=== PATIENT | female | born 1940 | race Caucasian/White ===

== ENCOUNTER 2017-05-21 16:17 | Observation (INO) | payer OTHER ==
[~2017-05-21] VITALS: Ht 157.5 cm; Wt 107.0 kg
[~2017-05-21 16:17] MED LIST: SENN-61 PO
[2017-05-21] MEDS ORDERED: SODIUM CHLORIDE 0.9% 1000ML 500 ML IV STA (16:36)
[2017-05-21] MEDS ORDERED: OMEG10007 PO (17:08)
[2017-05-21] MEDS ORDERED: ASPI81TA28 PO (17:08)
[2017-05-21] MEDS ORDERED: PANTOprazole INJ 40 MG in DEXTROSE 5% 100ML IV SCH (17:15)
[2017-05-21] MEDS ORDERED: PANTOprazole INJ 80 MG in DEXTROSE 5% 100ML IV SCH (17:15)
[2017-05-21 17:17] LABS: BASO % 0.7 %; BASO ABS # 0.06 K/uL (0-0.2); COMPLETE YES; EOS % 4.2 %; IG% 0.1 %; LYMPH % 24.7 %; MEAN CELL VOLUME 91.3 fL (80-100); MEAN CORPUSCULAR HEMOGLOBIN 30.1 pg (25-34); MEAN PLATELET VOLUME 10.4 fL (7.4-10.4); NEUT % 62.3 %; PLATELET COUNT 231 K/uL (130-400); RED BLOOD COUNT 4.38 M/uL (4.2-5.4)
[2017-05-21 17:22] LABS: PROTHROMBIN TIME (PATIENT) 10.2 SECONDS (9.0-12.0)
[2017-05-21 17:36] LABS: BUN/CREATININE RATIO 18.2 (10-20); CALCIUM 9.2 mg/dl (8.5-10.1); CREATININE 1.21 mg/dl (0.60-1.20); POTASSIUM 3.7 mmol/L (3.5-5.1)
--- NOTE | 2017-05-21 18:34 | EMERGENCY ROOM VISIT NOTE ---
History Report prepared by Sarah: Contreras Thornton Under the Supervision of: Dr. Diogo Bishop M.D. First contact with patient: 16:31 Chief Complaint: RECTAL BLEEDING Stated Complaint: RECTAL BLEEDING S/P COLONOSCOPY- GI REFERRED History of Present Illness The patient is a 77 year old female who presents to the Emergency Room with complaints of intermittent rectal bleeding beginning three days ago. She had a colonoscopy two weeks ago which showed two polyps. She states that the polyps were removed surgically at this time, casey were required. The patient states that her bloody bowel movements were "bright red" three days ago. She had no bowel movement two days ago. Her bowel movements yesterday and today were "black ". The patient currently complains of lightheadedness, and rectal "cramping". She notes that she recently found out she has stage 3 kidney disease. She had an EGD recently as well for GERD and is currently on Pantoprazole. She is on baby aspirin, but does not take any other blood thinning medication. Source of History: patient Onset: Three days ago Position: other (rectum) Quality: other (bleeding) Timing: intermittent Note: The patient currently complains of lightheadedness, and rectal "cramping". Review of Systems See HPI for pertinent positives & negatives. A total of 10 systems reviewed and were otherwise negative. Past Medical & Surgical Medical Problems: (1) GERD (gastroesophageal reflux disease) Surgical Problems: (1) Hx of cholecystectomy Family History No pertinent family history stated. Social History Smoking Status: Never Smoker Marital Status: Housing Status: lives with significant other Occupation Status: employed Current/Historical Medications Scheduled Aspirin (Aspirin Ec), 81 MG PO DAILY Bupropion Hcl (Wellbutrin Sr), 150 MG PO DAILY Citalopram Hydrobromide (Citalopram Hydrobromide), 20 MG PO DAILY Fish Oil ([place]-3), 1 CAP PO DAILY Levothyroxine Sodium (Levothyroxine Sodium), 100 MCG PO DAILY Pantoprazole (Protonix), 40 MG PO DAILY Allergies Coded Allergies: Hydroxyzine (Verified Allergy, Unknown, HIVES, 11/15/15) Physical Exam Vital Signs Date Time Temp Pulse Resp B/P (MAP) Pulse Ox O2 Delivery O2 Flow Rate FiO2 05/21/17 18:59 68 20 157/78 97 Room Air 11/15/17 18:00 162/75 05/21/17 17:47 70 21 93 05/21/17 17:32 65 18 96 05/21/17 17:30 160/78 05/21/17 17:17 67 15 97 05/21/17 17:13 66 05/21/17 17:11 150/82 05/21/17 16:20 36.7 99 18 132/83 99 Room Air Physical Exam GENERAL: Patient is in no acute distress. HEENT: No acute trauma, normocephalic atraumatic, mucous membranes moist, no nasal congestion, no scleral icterus. NECK: No stridor, no adenopathy, no meningismus, trachea is midline. LUNGS: Clear to auscultation bilaterally, no wheeze, no rhonchi, breath sounds equal. HEART: Without murmurs gallops or rubs, regular rate and rhythm. ABDOMEN: Soft, bowel sounds positive, no hernias, no peritonitis. Mildly tender along the left side of abdomen. RECTAL: Black, heme-positive stool. EXTREMITIES: No cyanosis or edema, full range of motion of all the joints without pain or difficulty, no signs for acute trauma. NEUROLOGIC: Oriented x 3, no acute motor or sensory deficits, no focal weakness. SKIN: No rash, no jaundice, no diaphoresis. Medical Decision & Procedures ER Provider Diagnostic Interpretation: X-ray results as stated below per interpretation by me and the radiologist: CHEST ONE VIEW PORTABLE FINDINGS: Cardiac silhouette is mildly enlarged. There is atherosclerosis of the aorta. There is no pneumothorax, pleural effusion, focal airspace consolidation or overt pulmonary edema. Bones of the chest are grossly intact. Mild interstitial coarsening suggests chronic changes. Linear subsegmental right basilar opacities suggest atelectasis or scarring. Bones of the chest are grossly intact with degenerative changes of the shoulders and spine. Calcifications of the right neck suggest atherosclerotic plaquing of the right carotid bulb. IMPRESSION: No acute cardiopulmonary process. The above report was generated using voice recognition software. It may contain grammatical, syntax or spelling errors. Electronically signed by: Hany Porter M.D. 05/21/2017 6:40 PM Laboratory Results 05/21/17 16:53 Red Blood Count 4.38, Mean Corpuscular Volume 91.3, Mean Corpuscular Hemoglobin 30.1, Mean Corpuscular Hemoglobin Concent 33.0, Mean Platelet Volume 10.4, Neutrophils (%) (Auto) 62.3, Lymphocytes (%) (Auto) 24.7, Monocytes (%) (Auto) 8.0, Eosinophils (%) (Auto) 4.2, Basophils (%) (Auto) 0.7, Neutrophils # (Auto) 5.04, Lymphocytes # (Auto) 2.00, Monocytes # (Auto) 0.65, Eosinophils # (Auto) 0.34, Basophils # (Auto) 0.06 05/21/17 16:53 Test 05/21/17 16:53 White Blood Count 8.10 K/uL (4.8-10.8) Red Blood Count 4.38 M/uL (4.2-5.4) Hemoglobin 13.2 g/dL (12.0-16.0) Hematocrit 40.0 % (37-47) Mean Corpuscular Volume 91.3 fL (80-100) Mean Corpuscular Hemoglobin 30.1 pg (25-34) Mean Corpuscular Hemoglobin Concent 33.0 g/dl (32-36) Platelet Count 231 K/uL (130-400) Mean Platelet Volume 10.4 fL (7.4-10.4) Neutrophils (%) (Auto) 62.3 % Lymphocytes (%) (Auto) 24.7 % Monocytes (%) (Auto) 8.0 % Eosinophils (%) (Auto) 4.2 % Basophils (%) (Auto) 0.7 % Neutrophils # (Auto) 5.04 K/uL (1.4-6.5) Lymphocytes # (Auto) 2.00 K/uL (1.2-3.4) Monocytes # (Auto) 0.65 K/uL (0.11-0.59) Eosinophils # (Auto) 0.34 K/uL (0-0.5) Basophils # (Auto) 0.06 K/uL (0-0.2) RDW Standard Deviation 46.1 fL (36.4-46.3) RDW Coefficient of Variation 13.9 % (11.5-14.5) Immature Granulocyte % (Auto) 0.1 % Immature Granulocyte # (Auto) 0.01 K/uL (0.00-0.02) Prothrombin Time 10.2 SECONDS (9.0-12.0) Prothromb Time International Ratio 1.0 (0.9-1.1) Activated Partial Thromboplast Time 24.9 SECONDS (21.0-31.0) Partial Thromboplastin Ratio 1.0 Anion Gap 9.0 mmol/L (3-11) Est Creatinine Clear Calc Drug Dose 46.2 ml/min Estimated GFR () 50.7 Estimated GFR (Non- 43.7 BUN/Creatinine Ratio 18.2 (10-20) Calcium Level 9.2 mg/dl (8.5-10.1) Total Bilirubin 0.4 mg/dl (0.2-1) Aspartate Amino Transf (AST/SGOT) 12 U/L (15-37) Alanine Aminotransferase (ALT/SGPT) 19 U/L (12-78) Alkaline Phosphatase 91 U/L (45-117) Total Protein 7.6 gm/dl (6.4-8.2) Albumin 3.7 gm/dl (3.4-5.0) Globulin 3.9 gm/dl (2.5-4.0) Albumin/Globulin Ratio 1.0 (0.9-2) Lipase 177 U/L (73-393) Laboratory results reviewed by me. Medications Administered Medications (Trade) Dose Ordered Sig/Dustin Route Start Time Stop Time Status Last Admin Dose Admin Sodium Chloride 500 ml @ 999 mls/hr Q31M STAT IV 05/21/17 16:36 05/21/17 17:06 DC 05/21/17 16:36 999 MLS/HR Pantoprazole Sodium 80 mg/ Dextrose 120 ml @ 480 mls/hr TODAY@1715 IV 05/21/17 17:15 05/21/17 17:29 DC 05/21/17 17:38 480 MLS/HR Pantoprazole Sodium 40 mg/ Dextrose 100 ml @ 20 mls/hr Q5H IV 05/21/17 17:15 05/21/17 22:15 05/21/17 17:38 20 MLS/HR ECG Indication: other (GI bleeding) Rate (beats per minute): 69 Rhythm: normal sinus Findings: no acute ischemic change, no ectopy ED Course 1632: The patient was evaluated in room B4B. A complete history and physical exam was performed. 1636: Ordered Protonix IV Bolus/Drip IV, Sodium Chloride 500 ml @ 999 mls/hr IV. 1715: Ordered Pantoprazole Sodium 40 mg/Dextrose 100 mL @ 20 mL/hr IV. 1835: Upon reexamination the patient is resting comfortably. I discussed results and treatment plan with the patient. She verbalizes agreement and understanding. The patient will be evaluated for further management. Medical Decision The patient is a 77 year old female who presents to the ED with complaints of rectal bleeding. Differential diagnoses considered include upper GI bleeding, ulcer, anemia, lower GI bleeding, electrolyte imbalance, dehydration, and coagulopathy. There is no leukocytosis or concerning anemia. No significant electrolyte abnormality, kidney failure or hepatitis. There is no pancreatitis. There is no coagulopathy. Chest film shows no mediastinal widening, free air or pneumonia. EKG shows a sinus rhythm, no acute ischemia. The patient received IV saline, she was given an IV Protonix bolus and placed on a Protonix drip. She has been resting comfortably. The patient is likely suffering from an upper GI bleed given the color of the stool. I spoke with GI, a hospital stay was recommended. I did speak to the patient about my findings, I talked with case management. The on-call hospitalist was consulted. Medication Reconcilliation Current Medication List: was personally reviewed by me Blood Pressure Screening Patient's blood pressure: Elevated blood pressure Blood pressure disposition: Elevated BP felt to be situational Consults Time Called: 1642 Consulting Physician: Dr. Torin ARMENTA Returned Call: 1650 Discussed the patient's case. Dr. Harkins feels that the patient should stay for further evaluation. Additional Consults: Time Called: 1807 Consulted Physician: Dr. Rey Smith Returned Call: 1838 Additional Comments: Discussed the patient's case. The patient will be evaluated for further management. Impression Primary Impression: GI bleeding Additional Impression: Heme positive stool Scribe Attestation The scribe's documentation has been prepared under my direction and personally reviewed by me in its entirety. I confirm that the note above accurately reflects all work, treatment, procedures, and medical decision making performed by me. Departure Information Dispostion Being Evaluated By Hospitalist Referrals No Doctor, Assigned (PCP) Patient Instructions My [facility] Problem Qualifiers
--- NOTE | 2017-05-21 18:41 | DIAGNOSTIC IMAGING REPORT ---
CHEST ONE VIEW PORTABLE HISTORY: 77 years-old Female EVALUATE GI BLEED acute gastrointestinal hemorrhage COMPARISON: None available TECHNIQUE: Portable AP view of the chest FINDINGS: Cardiac silhouette is mildly enlarged. There is atherosclerosis of the aorta. There is no pneumothorax, pleural effusion, focal airspace consolidation or overt pulmonary edema. Bones of the chest are grossly intact. Mild interstitial coarsening suggests chronic changes. Linear subsegmental right basilar opacities suggest atelectasis or scarring. Bones of the chest are grossly intact with degenerative changes of the shoulders and spine. Calcifications of the right neck suggest atherosclerotic plaquing of the right carotid bulb. IMPRESSION: No acute cardiopulmonary process. The above report was generated using voice recognition software. It may contain grammatical, syntax or spelling errors. Electronically signed by: Hany Porter M.D. 05/21/2017 6:40 PM Dictated Date/Time: 05/21/2017 6:38 PM
--- NOTE | 2017-05-21 19:35 | History and Physical ---
History & Physical Date & Time of Service: May 21, 2017 at 19:20 Chief Complaint: Rectal Bleeding S/P Colonoscopy- Gi Referred Primary Care Physician: Magi Rodriguez D.O. History of Present Illness Source: patient Past Medical/Surgical History Medical Problems: (1) GERD (gastroesophageal reflux disease) Status: Chronic Surgical Problems: (1) Hx of cholecystectomy Status: Resolved Family History Breast cancer MOTHER This is a 77 year old F with recent upper endoscopy and colonoscopy on 05/09/17 with presentation to the ED after having blood in stool starting Friday then subsequently blood in stool black and tarry in appearance. Patient denies abdominal pain associated with the blood in rectum. Patient able to tolerate her usual diet without vomiting. Patient denies chest pain or shortness of breath. Patient takes aspirin daily at home. Other past medical history of Levothyroxine for hypothyroidism. History of gallbladder removed. The ER physician had discussed the case with Gastroenterology Dr. Harkins who asked patient to be given bowel prep and NPO after midnight for possible colonoscopy on Friday05/22/17 Social History Smoking Status: Never Smoker Marital Status: Occupational Status: employed Multi-Drug Resistant Organisms History of MDRO: No Allergies Coded Allergies: Hydroxyzine (Verified Allergy, Unknown, HIVES, 11/15/15) Home Medications Scheduled Aspirin (Aspirin Ec), 81 MG PO DAILY Bupropion Hcl (Wellbutrin Sr), 150 MG PO DAILY Citalopram Hydrobromide (Citalopram Hydrobromide), 20 MG PO DAILY Fish Oil ([place]-3), 1 CAP PO DAILY Levothyroxine Sodium (Levothyroxine Sodium), 100 MCG PO DAILY Pantoprazole (Protonix), 40 MG PO DAILY Review of Systems Constitutional: No fever Eyes: No worsening of vision, No eye pain ENT: No hearing loss, No unusual epistaxis, No nasal symptoms, No sore throat, No trouble swallowing Respiratory: No cough, No sputum, No wheezing, No shortness of breath, No dyspnea on exertion, No dyspnea at rest Cardiovascular: No chest pain, No edema, No palpitations Abdomen: + GI bleeding, No pain, No nausea, No vomiting, No diarrhea, No constipation Genitourinary - Female: No dysuria Neurologic: No numbness/tingling Psychiatric: No substance abuse Endocrine: No fatigue Hematologic / Lymphatic: + abnormal bleeding/bruising (blood per rectum) Integumentary: + rash, + itch Physical Exam Vital Signs Date Time Temp Pulse Resp B/P (MAP) Pulse Ox O2 Delivery O2 Flow Rate FiO2 05/21/17 18:59 68 20 157/78 97 Room Air 05/21/17 18:00 162/75 05/21/17 17:47 70 21 93 05/21/17 17:32 65 18 96 05/21/17 17:30 160/78 05/21/17 17:17 67 15 97 05/21/17 17:13 66 05/21/17 17:11 150/82 05/21/17 16:20 36.7 99 18 132/83 99 Room Air General Appearance: WD/WN, no apparent distress Head: normocephalic, atraumatic Eyes: normal inspection, EOMI, sclerae normal ENT: normal ENT inspection, hearing grossly normal, TMs normal, pharynx normal Neck: no JVD, trachea midline Respiratory/Chest: chest non-tender, lungs clear, normal breath sounds, no respiratory distress, no accessory muscle use Cardiovascular: regular rate, rhythm, no edema, no JVD Abdomen/GI: normal bowel sounds, non tender, soft Back: normal inspection, no CVA tenderness, no muscle spasm, normal range of motion Extremities/Musculoskelatal: normal inspection, no calf tenderness, normal capillary refill, no pedal edema, normal range of motion Neurologic/Psych: no motor/sensory deficits, alert, normal mood/affect, oriented x 3 Skin: normal color, warm/dry, no rash Diagnostics Laboratory Results Results Past 24 Hours Test 05/21/17 16:53 Range/Units White Blood Count 8.10 4.8-10.8 K/uL Red Blood Count 4.38 4.2-5.4 M/uL Hemoglobin 13.2 12.0-16.0 g/dL Hematocrit 40.0 37-47 % Mean Corpuscular Volume 91.3 80-100 fL Mean Corpuscular Hemoglobin 30.1 25-34 pg Mean Corpuscular Hemoglobin Concent 33.0 32-36 g/dl Platelet Count 231 130-400 K/uL Mean Platelet Volume 10.4 7.4-10.4 fL Neutrophils (%) (Auto) 62.3 % Lymphocytes (%) (Auto) 24.7 % Monocytes (%) (Auto) 8.0 % Eosinophils (%) (Auto) 4.2 % Basophils (%) (Auto) 0.7 % Neutrophils # (Auto) 5.04 1.4-6.5 K/uL Lymphocytes # (Auto) 2.00 1.2-3.4 K/uL Monocytes # (Auto) 0.65 0.11-0.59 K/uL Eosinophils # (Auto) 0.34 0-0.5 K/uL Basophils # (Auto) 0.06 0-0.2 K/uL RDW Standard Deviation 46.1 36.4-46.3 fL RDW Coefficient of Variation 13.9 11.5-14.5 % Immature Granulocyte % (Auto) 0.1 % Immature Granulocyte # (Auto) 0.01 0.00-0.02 K/uL Prothrombin Time 10.2 9.0-12.0 SECONDS Prothromb Time International Ratio 1.0 0.9-1.1 Activated Partial Thromboplast Time 24.9 21.0-31.0 SECONDS Partial Thromboplastin Ratio 1.0 Sodium Level 139 136-145 mmol/L Potassium Level 3.7 3.5-5.1 mmol/L Chloride Level 105 98-107 mmol/L Carbon Dioxide Level 26 21-32 mmol/L Anion Gap 9.0 3-11 mmol/L Blood Urea Nitrogen 22 7-18 mg/dl Creatinine 1.21 0.60-1.20 mg/dl Est Creatinine Clear Calc Drug Dose 46.2 ml/min Estimated GFR () 50.7 Estimated GFR (Non- 43.7 BUN/Creatinine Ratio 18.2 10-20 Random Glucose 81 70-99 mg/dl Calcium Level 9.2 8.5-10.1 mg/dl Total Bilirubin 0.4 0.2-1 mg/dl Aspartate Amino Transf (AST/SGOT) 12 15-37 U/L Alanine Aminotransferase (ALT/SGPT) 19 12-78 U/L Alkaline Phosphatase 91 45-117 U/L Total Protein 7.6 6.4-8.2 gm/dl Albumin 3.7 3.4-5.0 gm/dl Globulin 3.9 2.5-4.0 gm/dl Albumin/Globulin Ratio 1.0 0.9-2 Lipase 177 73-393 U/L Impression Assessment and Plan This is a 77 year old F with recent upper endoscopy and colonoscopy on 05/09/17 with presentation to the ED after having blood in stool starting Friday then subsequently blood in stool black and tarry in appearance. Patient denies abdominal pain associated with the blood in rectum. Patient able to tolerate her usual diet without vomiting. Patient denies chest pain or shortness of breath. GI bleed clear liquid diet for now The ER physician had discussed the case with Gastroenterology Dr. Harkins who asked patient to be given bowel prep and NPO after midnight for possible colonoscopy on Friday05/22/17 Bowel prep Golytely ordered Pantoprazole 40 mg BID IV ordered Cardiovascular health Hold home dose aspirin Hypothyroidism Hold Levothyroxine on AM 05/22/17 and resume after GI intervention Dysthymic disorder Hold home dosed Bupropion Hcl (Wellbutrin Sr) and Citalopram Hydrobromide until after Gi intervention CKD: trend creatinine, give IV fluids for now DVT ppx: SCD Monitor on telemetry Full Code Level of Care Telemetry Resuscitation Status FULL RESUSCITATION VTE Prophylaxis VTE Risk Assessment Done? Y/N: Yes Risk Level: Moderate Given or contraindicated: SCD's
[2017-05-21] MEDS ORDERED: SODIUM CHLORIDE 0.9% 1000ML 1,000 ML IV SCH (19:45)
[2017-05-21 20:05] VITALS: BP 153/85; TEMP 36.7; O2SAT 93; Ht 157.5 cm; Wt 107.0 kg
[2017-05-21] MEDS ORDERED: IV FLUIDS COMPLETED PRN (21:15)
[2017-05-21] MEDS: PANTOprazole INJ 40 MG in SYRINGE 0 ML IV SCH (21:51)
[2017-05-21] MEDS ORDERED: LAVAGE SOLUTION 4000ML PO SCH (22:40)
[2017-05-21] MEDS ORDERED: WLLSR/150 PO (23:38)
[2017-05-21] MEDS ORDERED: PANT40TA PO (23:40)
[2017-05-21] MEDS ORDERED: LEVO100T7 PO (23:40)
[2017-05-21] MEDS ORDERED: CITA20TA4 PO (23:40)
[2017-05-22] VITALS (9 sets, daily range): BP systolic 136–186; BP diastolic 57–74; PULSE 64–88; TEMP 36.2–36.8; O2SAT 96–100
[2017-05-22] MEDS ORDERED: METOPROLOL SUCC 25MG EXT REL TAB PO ONE (05:32)
[2017-05-22] MEDS ORDERED: POTASSIUM CHLORIDE 10 MEQ TABCR PO STA (05:32)
--- NOTE | 2017-05-22 05:33 | Progress Note ---
Internal Med Progress Note Date of Service: May 22, 2017. Provider Documentation: Made aware by RN of run of NSVT on the monitor. Patient asymptomatic. AP NSVT Possibly from electrolyte imbalance secondary to ongoing colonoscopy prep Check lytes Beta vandana to suppress ectopy. Baseline TTE RE NSVT Will relay to AM provider Vital Signs: Date Time Temp Pulse Resp B/P (MAP) Pulse Ox O2 Delivery O2 Flow Rate FiO2 05/22/17 05:01 36.7 71 19 158/68 (98) 98 Room Air 05/22/17 04:00 Room Air 05/22/17 00:10 36.8 66 18 136/65 (88) 96 Nasal Cannula 05/22/17 00:00 Room Air 05/21/17 20:05 36.7 20 153/85 93 Room Air 05/21/17 19:33 74 20 153/85 93 Room Air 05/21/17 18:59 68 20 157/78 97 Room Air 05/21/17 18:00 162/75 05/21/17 17:47 70 21 93 05/21/17 17:32 65 18 96 05/21/17 17:30 160/78 05/21/17 17:17 67 15 97 05/21/17 17:13 66 05/21/17 17:11 150/82 05/21/17 16:20 36.7 99 18 132/83 99 Room Air Lab Results: Results Past 24 Hours Test 05/21/17 16:53 05/22/17 05:46 Range/Units White Blood Count 8.10 6.42 4.8-10.8 K/uL Red Blood Count 4.38 4.12 4.2-5.4 M/uL Hemoglobin 13.2 12.3 12.0-16.0 g/dL Hematocrit 40.0 37.4 37-47 % Mean Corpuscular Volume 91.3 90.8 80-100 fL Mean Corpuscular Hemoglobin 30.1 29.9 25-34 pg Mean Corpuscular Hemoglobin Concent 33.0 32.9 32-36 g/dl Platelet Count 231 199 130-400 K/uL Mean Platelet Volume 10.4 10.2 7.4-10.4 fL Neutrophils (%) (Auto) 62.3 59.2 % Lymphocytes (%) (Auto) 24.7 25.9 % Monocytes (%) (Auto) 8.0 9.7 % Eosinophils (%) (Auto) 4.2 4.4 % Basophils (%) (Auto) 0.7 0.6 % Neutrophils # (Auto) 5.04 3.81 1.4-6.5 K/uL Lymphocytes # (Auto) 2.00 1.66 1.2-3.4 K/uL Monocytes # (Auto) 0.65 0.62 0.11-0.59 K/uL Eosinophils # (Auto) 0.34 0.28 0-0.5 K/uL Basophils # (Auto) 0.06 0.04 0-0.2 K/uL RDW Standard Deviation 46.1 45.9 36.4-46.3 fL RDW Coefficient of Variation 13.9 13.9 11.5-14.5 % Immature Granulocyte % (Auto) 0.1 0.2 % Immature Granulocyte # (Auto) 0.01 0.01 0.00-0.02 K/uL Prothrombin Time 10.2 9.0-12.0 SECONDS Prothromb Time International Ratio 1.0 0.9-1.1 Activated Partial Thromboplast Time 24.9 21.0-31.0 SECONDS Partial Thromboplastin Ratio 1.0 Sodium Level 139 136-145 mmol/L Potassium Level 3.7 3.5-5.1 mmol/L Chloride Level 105 98-107 mmol/L Carbon Dioxide Level 26 21-32 mmol/L Anion Gap 9.0 3-11 mmol/L Blood Urea Nitrogen 22 7-18 mg/dl Creatinine 1.21 0.60-1.20 mg/dl Est Creatinine Clear Calc Drug Dose 46.2 ml/min Estimated GFR () 50.7 Estimated GFR (Non- 43.7 BUN/Creatinine Ratio 18.2 10-20 Random Glucose 81 70-99 mg/dl Calcium Level 9.2 8.5-10.1 mg/dl Total Bilirubin 0.4 0.2-1 mg/dl Aspartate Amino Transf (AST/SGOT) 12 15-37 U/L Alanine Aminotransferase (ALT/SGPT) 19 12-78 U/L Alkaline Phosphatase 91 45-117 U/L Total Protein 7.6 6.4-8.2 gm/dl Albumin 3.7 3.4-5.0 gm/dl Globulin 3.9 2.5-4.0 gm/dl Albumin/Globulin Ratio 1.0 0.9-2 Lipase 177 73-393 U/L
[2017-05-22] MEDS: LEVOTHYROXINE 100 MCG TAB PO SCH (06:02)
[2017-05-22 06:03] LABS: BASO % 0.6 %; BASO ABS # 0.04 K/uL (0-0.2); COMPLETE YES; EOS % 4.4 %; HEMATOCRIT 37.4 % (37-47); IG% 0.2 %; LYMPH % 25.9 %; LYMPH ABS # 1.66 K/uL (1.2-3.4); MEAN CELL VOLUME 90.8 fL (80-100); MEAN CORPUSCULAR HEMOGLOBIN 29.9 pg (25-34); MEAN CORPUSCULAR HGB CONC 32.9 g/dl (32-36); MEAN PLATELET VOLUME 10.2 fL (7.4-10.4); MONO % 9.7 %; NEUT % 59.2 %; PLATELET COUNT 199 K/uL (130-400); RED BLOOD COUNT 4.12 M/uL (4.2-5.4); WHITE BLOOD COUNT 6.42 K/uL (4.8-10.8)
[2017-05-22 06:42] LABS: CALCIUM 8.2 mg/dl (8.5-10.1); CREATININE 1.1 mg/dl (0.60-1.20); MAGNESIUM 2.1 mg/dl (1.8-2.4); POTASSIUM 3.9 mmol/L (3.5-5.1)
[2017-05-22] MEDS ORDERED: LACTATED RINGER'S 1000ML 1,000 ML IV SCH (06:45)
[2017-05-22 06:54] LABS: THYROID STIMULATING HORMONE 3.51 uIu/ml (0.300-4.500)
--- NOTE | 2017-05-22 08:11 | Progress Note ---
Subjective Date of Service: May 22, 2017. Subjective Pt evaluation today including: conversation w/ patient, physical exam, lab review, review of studies, review of inpatient medication list Saw/examined the patient in room 206 No problems/issues to note this morning, but had a rough night due to her bowel prep States that duet o multiple bowel movements, she could not sleep Developed a few episodes of NSVT last evening - asymptomatic. Was given some potassium and a b-vandana Still denies chest pain/palpitations/shortness of breath. Problem List Medical Problems: (1) GI bleeding Status: Acute (2) Heme positive stool Status: Acute (3) Nausea, vomiting, and diarrhea Status: Acute Review of Systems Constitutional: No fever, No chills Respiratory: No cough, No sputum, No shortness of breath Cardiac: No chest pain Abdomen: + pain, + diarrhea, + GI bleeding, No nausea, No vomiting, No constipation Musculoskeletal: No joint pain Female : No dysuria, No urinary frequency Heme: + abnormal bleeding/bruising Medications Current Inpatient Medications Medications (Trade) Dose Ordered Sig/Dustin Route Start Time Stop Time Status Last Admin Dose Admin Pantoprazole Sodium 40 mg/ Syringe 10 ml @ 5 mls/min BID IV 05/21/17 21:00 06/20/17 20:59 05/22/17 08:21 5 MLS/MIN Miscellaneous (Iv Fluids Completed) 1 ea PRN PRN N/A 05/21/17 21:15 05/21/18 21:14 Metoprolol Succinate (Toprol Xl Tab) 25 mg QAM PO 05/23/17 09:00 06/22/17 08:59 Bupropion HCl (Wellbutrin-Sr Tab) 150 mg DAILY PO 05/22/17 09:00 06/21/17 08:59 Citalopram Hydrobromide (celeXA TAB) 20 mg DAILY PO 05/22/17 09:00 06/21/17 08:59 Levothyroxine Sodium (Synthroid Tab) 100 mcg DAILYBB PO 05/22/17 06:00 06/21/17 05:59 05/22/17 06:02 100 MCG Lactated Ringer's 1,000 ml @ 60 mls/hr [id number] IV 05/22/17 06:45 06/21/17 06:44 05/22/17 08:21 60 MLS/HR Objective Vital Signs Date Time Temp Pulse Resp B/P (MAP) Pulse Ox O2 Delivery O2 Flow Rate FiO2 05/22/17 05:01 36.7 71 19 158/68 (98) 98 Room Air 05/22/17 04:00 Room Air 05/22/17 00:10 36.8 66 18 136/65 (88) 96 Nasal Cannula 05/22/17 00:00 Room Air 05/21/17 20:05 36.7 20 153/85 93 Room Air 05/21/17 19:33 74 20 153/85 93 Room Air 05/21/17 18:59 68 20 157/78 97 Room Air 05/21/17 18:00 162/75 05/21/17 17:47 70 21 93 05/21/17 17:32 65 18 96 05/21/17 17:30 160/78 05/21/17 17:17 67 15 97 05/21/17 17:13 66 05/21/17 17:11 150/82 05/21/17 16:20 36.7 99 18 132/83 99 Room Air Physical Exam General Appearance: no apparent distress, + obese ENT: hearing grossly normal Respiratory/Chest: lungs clear, normal breath sounds, no respiratory distress, no accessory muscle use Abdomen: normal bowel sounds, soft, + tenderness (mildly tender at lower abdomen) Extremities: normal range of motion, non-tender, normal inspection, no pedal edema, no calf tenderness Neurologic/Psychiatric: no motor/sensory deficits, alert, normal mood/affect Laboratory Results Last 24 Hours Test 05/21/17 16:53 05/22/17 05:46 White Blood Count 8.10 K/uL 6.42 K/uL Red Blood Count 4.38 M/uL 4.12 M/uL Hemoglobin 13.2 g/dL 12.3 g/dL Hematocrit 40.0 % 37.4 % Mean Corpuscular Volume 91.3 fL 90.8 fL Mean Corpuscular Hemoglobin 30.1 pg 29.9 pg Mean Corpuscular Hemoglobin Concent 33.0 g/dl 32.9 g/dl Platelet Count 231 K/uL 199 K/uL Mean Platelet Volume 10.4 fL 10.2 fL Neutrophils (%) (Auto) 62.3 % 59.2 % Lymphocytes (%) (Auto) 24.7 % 25.9 % Monocytes (%) (Auto) 8.0 % 9.7 % Eosinophils (%) (Auto) 4.2 % 4.4 % Basophils (%) (Auto) 0.7 % 0.6 % Neutrophils # (Auto) 5.04 K/uL 3.81 K/uL Lymphocytes # (Auto) 2.00 K/uL 1.66 K/uL Monocytes # (Auto) 0.65 K/uL 0.62 K/uL Eosinophils # (Auto) 0.34 K/uL 0.28 K/uL Basophils # (Auto) 0.06 K/uL 0.04 K/uL RDW Standard Deviation 46.1 fL 45.9 fL RDW Coefficient of Variation 13.9 % 13.9 % Immature Granulocyte % (Auto) 0.1 % 0.2 % Immature Granulocyte # (Auto) 0.01 K/uL 0.01 K/uL Prothrombin Time 10.2 SECONDS Prothromb Time International Ratio 1.0 Activated Partial Thromboplast Time 24.9 SECONDS Partial Thromboplastin Ratio 1.0 Sodium Level 139 mmol/L 142 mmol/L Potassium Level 3.7 mmol/L 3.9 mmol/L Chloride Level 105 mmol/L 109 mmol/L Carbon Dioxide Level 26 mmol/L 24 mmol/L Anion Gap 9.0 mmol/L 9.0 mmol/L Blood Urea Nitrogen 22 mg/dl 15 mg/dl Creatinine 1.21 mg/dl 1.10 mg/dl Est Creatinine Clear Calc Drug Dose 46.2 ml/min 51.2 ml/min Estimated GFR () 50.7 56.9 Estimated GFR (Non- 43.7 49.1 BUN/Creatinine Ratio 18.2 14.0 Random Glucose 81 mg/dl 98 mg/dl Calcium Level 9.2 mg/dl 8.2 mg/dl Total Bilirubin 0.4 mg/dl 0.5 mg/dl Aspartate Amino Transf (AST/SGOT) 12 U/L 11 U/L Alanine Aminotransferase (ALT/SGPT) 19 U/L 17 U/L Alkaline Phosphatase 91 U/L 74 U/L Total Protein 7.6 gm/dl 6.5 gm/dl Albumin 3.7 gm/dl 3.3 gm/dl Globulin 3.9 gm/dl 3.2 gm/dl Albumin/Globulin Ratio 1.0 1.0 Lipase 177 U/L Magnesium Level 2.1 mg/dl Thyroid Stimulating Hormone (TSH) 3.510 uIu/ml Assessment and Plan This is a 77 year old female with a PMH of HTN, HLD, CKD stage 3, hypothyroidism , GERD, dysthymic disorder, stable meningioma, recent colonoscopy/endoscopy on 05/09/17 presented with black, tarry stool Possible LGIB patient presented with bright red blood, which had transitioned to black, tarry stool; began on 05/18 recent upper/lower endoscopy - findings included esophagitis and colonic polyp, some colonic AVMs; as well as esophagitis Hgb stable, hemodynamically stable as per GI, has been NPO after midnight; bowel prep for possible colonoscopy today 05/23 continue IV PPI BID IVFs Asymptomatic NSVT as per exhibition designer - patient had a run of NSVT on monitor electrolytes repleted, b-vandana initiated, and TTE ordered monitor in tele will keep K > 4.0 and Mg > 2.0 Dysthymia continue Wellbutrin and Celexa CKD stage 3 creatinine down from 1.2 to 1.1 continue IVFs for now Hypothyroidism TSH wnl continue Synthroid DVT ppx SCDs FULL CODE
[2017-05-22] MEDS ORDERED: POTASSIUM CHLORIDE 10 MEQ TABCR PO ONE (08:15)
[2017-05-22] MEDS: PANTOprazole INJ 40 MG in SYRINGE 0 ML IV SCH ×2 (08:21→21:21)
--- NOTE | 2017-05-22 08:56 | ECHOCARDIOGRAM REPORT ---
*NOTICE TO RECEIVING DEMOCRAT AGENCY This information is strictly Confidential and protected under [place] law. [place] law prohibits you from making any further disclosure of this information unless further disclosure is expressly permitted by the written consent of the person to whom it pertains or is authorized by law. A general authorization for the release of medical or other information is not sufficient for this purpose. Hospital accepts no responsibility if the information is made available to any other person, INCLUDING THE PATIENT. Interpretation Summary * Name: SELNEA NICOLAS Study Date: 05/22/2017 08:22 AM BP: 158/68 mmHg * Patient Location: C.2E\S\E206\S\1 HR: 77 * : 1940 (M/d/yyyy) Gender: Female Height: 62 in * Age: 77 yrs Ethnicity: CA Weight: 235 lb * Ordering Physician: Beau Ventura * Referring Physician: Ko Harkins * Performed By: Swathi Leslie RCS * * Reason For Study: NSVT * BSA: 2.0 m2 * -- Conclusions -- * Small, underfilled LV chamber size with mild concentric LVH, sigmoid appearing septum. * Normal LV systolic function, EF 55-60%. * No segmental left ventricular wall motion abnormalities are noted. * Grade I diastolic dysfunciton. * Aortic valve sclerosis mild, without significant aortic valvular stenosis. Mild aortic regurgitation. Procedure Details * A complete two-dimensional transthoracic echocardiogram was performed (2D, M-mode, Doppler and color flow Doppler). Left Ventricle * The left ventricular cavity is small. * There is mild concentric left ventricular hypertrophy. * Left ventricular systolic function is normal. * No segmental left ventricular wall motion abnormalities are noted. * Ejection Fraction = 55-60%. * The left ventricular wall motion is normal. Right Ventricle * The right ventricular cavity size is normal (basal dimension <4.2 cm in right ventricular apical 4-chamber view). * The right ventricular systolic function is normal as assessed by tricuspid annular plane systolic excursion (TAPSE) (normal >1.5 cm). Atria * The left atrial size is normal. * Right atrial size is normal. * No ASD detected; PFO is not assessed. Mitral Valve * The mitral valve is normal in structure and function. Tricuspid Valve * The tricuspid valve is normal in structure and function. Aortic Valve * The aortic valve is trileaflet. * Aortic valve sclerosis mild, without significant aortic valvular stenosis. * Mild aortic regurgitation. Pulmonic Valve * The pulmonary valve is not well seen, but the Doppler examination is normal without significant regurgitation or stenosis. Great Vessels * The aortic root is normal size. Pericardium/Pleural * There is no pericardial effusion. Left Ventricular Diastolic Function * Grade I diastolic dysfunction, (abnormal relaxation pattern). MMode 2D Measurements and Calculations IVSd 1.4 cm IVSs 1.7 cm LVIDd 3.8 cm LVIDs 2.9 cm LVPWd 1.1 cm LVPWs 1.2 cm IVS/LVPW 1.3 FS 23.4 % EDV(Teich) 62.6 ml ESV(Teich) 32.9 ml EF(Teich) 47.5 % EDV(cubed) 55.6 ml ESV(cubed) 25.0 ml EF(cubed) 55.0 % % IVS thick 14.5 % % LVPW thick 8.0 % LV mass(C)d 169.7 grams LV mass(C)dI 82.9 grams/m\S\2 LV mass(C)s 140.4 grams LV mass(C)sI 68.6 grams/m\S\2 SV(Teich) 29.7 ml SI(Teich) 14.5 ml/m\S\2 SV(cubed) 30.6 ml SI(cubed) 14.9 ml/m\S\2 Ao root diam 3.1 cm Ao root area 7.6 cm\S\2 ACS 1.7 cm LA dimension 3.2 cm LA/Ao 1.0 LVOT diam 1.9 cm LVOT area 2.9 cm\S\2 LVAd ap4 37.4 cm\S\2 LVLd ap4 8.3 cm EDV(MOD-sp4) 133.3 ml EDV(sp4-el) 142.8 ml LVAs ap4 22.0 cm\S\2 LVLs ap4 6.7 cm ESV(MOD-sp4) 59.1 ml ESV(sp4-el) 61.0 ml EF(MOD-sp4) 55.7 % EF(sp4-el) 57.3 % LVAd ap2 34.6 cm\S\2 LVLd ap2 8.4 cm EDV(MOD-sp2) 114.6 ml EDV(sp2-el) 120.6 ml LVAs ap2 21.5 cm\S\2 LVLs ap2 7.0 cm ESV(MOD-sp2) 56.3 ml ESV(sp2-el) 56.6 ml EF(MOD-sp2) 50.9 % EF(sp2-el) 53.1 % LVLd %diff 1.3 % EDV(MOD-bp) 123.4 ml LVLs %diff 3.7 % ESV(MOD-bp) 56.3 ml EF(MOD-bp) 54.4 % SV(MOD-sp4) 74.3 ml SI(MOD-sp4) 36.3 ml/m\S\2 SV(MOD-sp2) 58.3 ml SI(MOD-sp2) 28.5 ml/m\S\2 SV(MOD-bp) 67.1 ml SI(MOD-bp) 32.8 ml/m\S\2 SV(sp4-el) 81.9 ml SI(sp4-el) 40.0 ml/m\S\2 SV(sp2-el) 64.0 ml SI(sp2-el) 31.3 ml/m\S\2 Doppler Measurements and Calculations MV E max marylou 104.1 cm/sec MV A max marylou 118.6 cm/sec MV E/A 0.88 MV P1/2t max marylou 107.0 cm/sec MV P1/2t 67.5 msec MVA(P1/2t) 3.3 cm\S\2 MV dec slope 464.0 cm/sec\S\2 MV dec time 0.25 sec Ao V2 max 131.1 cm/sec Ao max PG 6.9 mmHg Ao max PG (full) 3.3 mmHg KILO(V,A) 2.1 cm\S\2 KILO(V,D) 2.1 cm\S\2 AI max marylou 361.3 cm/sec AI max PG 52.2 mmHg AI dec slope 186.4 cm/sec\S\2 AI P1/2t 567.8 msec LV V1 max PG 3.6 mmHg LV V1 max 95.1 cm/sec PA V2 max 89.7 cm/sec PA max PG 3.2 mmHg PI max marylou 155.3 cm/sec PI max PG 9.6 mmHg PI dec slope 113.8 cm/sec\S\2 PI P1/2t 399.9 msec TR max marylou 247.5 cm/sec
[2017-05-22] MEDS ORDERED: CITALOPRAM 20 MG TAB PO SCH (09:00)
[2017-05-22] MEDS ORDERED: BuPROPion SR 150 MG TABCR PO SCH (09:00)
--- NOTE | 2017-05-22 10:44 | Gastrointestinal Consultation ---
Gastrointestinal Consultation Date of Consultation: May 22, 2017 Attending Physician: Dr Tricia Nguyen Consulting Physician: Dr Bryan Bruner Reason for Consultation: Rectal bleeding History of Present Illness Patient is a 77 year old female who recently underwent a panendoscopy 05/09/[address] Harkins showing grade B reflux esophagitis, a few small colonic AVMs , one 10mm cecal polyp s/p piecemeal resection, treated with APC, and one 1mm polyp removed from the ascending colon. She states that initially she did well, but that 05/11/17, she noted some bright red blood with BMs, which persisted. On Friday, she states that the stool turned dark black in color, but still with some surrounding BRB. She reports occasional associated twinges of pain in the LLQ. She states that she had been taken off of her PPI by her biazzi nitrator operator recently, but due to the significant findings on EGD, this was restarted. She reports occasional breakthrough heartburn, but denies any nausea or emesis. She does take a daily aspirin at home and this has been stopped. She took a bowel prep last night, and states that her last several BMs have been clear, with no blood. Hgb is stable at 12.3. She had a run of tachycardia overnight and echocardiogram was performed, which was OK. Past Medical/Surgical History Medical Problems: (1) GI bleeding Status: Acute (2) Heme positive stool Status: Acute (3) Nausea, vomiting, and diarrhea Status: Acute Past Medical History: CKD-3, HTN, Hyperlipidemia, Hypothyroidism, Dysthymic disorder, GERD Family History Breast cancer MOTHER Social History Smoking Status: Never Smoker Marital Status: Housing Status: lives with significant other Occupation Status: employed Allergies Coded Allergies: Hydroxyzine (Verified Allergy, Unknown, HIVES, 11/15/15) Current Medications Home Meds and Scripts Medications Dose Route/Sig Max Daily Dose Days Date Category Hensley-3 (Fish Oil) 1 Ea Cap 1 Cap PO DAILY 05/21/17 Reported Aspirin Ec (Aspirin) 81 Mg Tab 81 Mg PO DAILY 05/21/17 Reported Citalopram Hydrobromide 20 Mg Tab 20 Mg PO DAILY 11/15/15 Reported Levothyroxine Sodium 100 Mcg Tab 100 Mcg PO DAILY 11/15/15 Reported Protonix (Pantoprazole Sodium) 40 Mg Tab 40 Mg PO DAILY 11/15/15 Reported Wellbutrin Sr (Bupropion Hcl) 150 Mg Tabcr 150 Mg PO DAILY 11/15/15 Reported Review of Systems Constitutional: No see HPI, No fever, No chills, No sweats, No weight loss, No weakness, No fatigue, No problem reported Eyes: No see HPI, No worsening of vision, No eye pain, No redness, No discharge , No diplopia, No problem reported ENT: No see HPI, No hearing loss, No unusual epistaxis, No nasal symptoms, No sore throat, No tinnitus, No dental problems, No trouble swallowing, No pain on swallowing, No problem reported Respiratory: No see HPI, No cough, No sputum, No wheezing, No shortness of breath, No dyspnea on exertion, No dyspnea at rest, No hemoptysis, No problem reported Cardiac: No see HPI, No chest pain, No orthopnea, No PND, No edema, No claudication, No palpitations, No problem reported Abdomen: + see HPI Musculoskeletal: No see HPI, No joint pain, No muscle pain, No swelling, No calf pain, No problem reported Female : No see HPI, No dysuria, No urinary frequency, No hematuria, No incontinence, No abnormal vaginal bleeding, No vaginal discharge, No problem reported Neuro: No see HPI, No memory loss, No paralysis, No weakness, No numbness/ tingling, No vertigo, No balance problems, No problem reported Psych: No see HPI, No depression symptoms, No anhedonism, No anxiety, No insomnia, No substance abuse, No problem reported Heme: + abnormal bleeding/bruising, No see HPI, No clotting problems, No swollen lymph nodes, No night sweats, No problem reported Endo: No see HPI, No fatigue, No excessive thirst, No excessive urination, No problem reported Skin: No see HPI, No rash, No itch, No new/changing skin lesions, No color change, No bleeding, No jaundice, No problem reported Physical Exam Date Time Temp Pulse Resp B/P (MAP) Pulse Ox O2 Delivery O2 Flow Rate FiO2 05/22/17 08:30 172/70 (104) 05/22/17 08:09 36.6 78 16 96 Room Air 05/22/17 05:01 36.7 71 19 158/68 (98) 98 Room Air 05/22/17 04:00 Room Air 05/22/17 00:10 36.8 66 18 136/65 (88) 96 Nasal Cannula 05/22/17 00:00 Room Air 05/21/17 20:05 36.7 20 153/85 93 Room Air 05/21/17 19:33 74 20 153/85 93 Room Air 05/21/17 18:59 68 20 157/78 97 Room Air 05/21/17 18:00 162/75 05/21/17 17:47 70 21 93 05/21/17 17:32 65 18 96 05/21/17 17:30 160/78 05/21/17 17:17 67 15 97 05/21/17 17:13 66 05/21/17 17:11 150/82 05/21/17 16:20 36.7 99 18 132/83 99 Room Air General Appearance: no apparent distress Eyes: normal inspection ENT: hearing grossly normal Neck: supple Respiratory/Chest: lungs clear, normal breath sounds, no respiratory distress, no accessory muscle use Cardiovascular: regular rate, rhythm, no edema, no murmur Abdomen: normal bowel sounds, non tender, soft, no organomegaly, no pulsatile mass Extremities: normal inspection, no pedal edema Neurologic/Psych: no motor/sensory deficits, alert, normal mood/affect Skin: normal color, no jaundice, warm/dry Laboratory Results Last 24 Hours Test 05/21/17 16:53 05/22/17 05:46 White Blood Count 8.10 K/uL 6.42 K/uL Red Blood Count 4.38 M/uL 4.12 M/uL Hemoglobin 13.2 g/dL 12.3 g/dL Hematocrit 40.0 % 37.4 % Mean Corpuscular Volume 91.3 fL 90.8 fL Mean Corpuscular Hemoglobin 30.1 pg 29.9 pg Mean Corpuscular Hemoglobin Concent 33.0 g/dl 32.9 g/dl Platelet Count 231 K/uL 199 K/uL Mean Platelet Volume 10.4 fL 10.2 fL Neutrophils (%) (Auto) 62.3 % 59.2 % Lymphocytes (%) (Auto) 24.7 % 25.9 % Monocytes (%) (Auto) 8.0 % 9.7 % Eosinophils (%) (Auto) 4.2 % 4.4 % Basophils (%) (Auto) 0.7 % 0.6 % Neutrophils # (Auto) 5.04 K/uL 3.81 K/uL Lymphocytes # (Auto) 2.00 K/uL 1.66 K/uL Monocytes # (Auto) 0.65 K/uL 0.62 K/uL Eosinophils # (Auto) 0.34 K/uL 0.28 K/uL Basophils # (Auto) 0.06 K/uL 0.04 K/uL RDW Standard Deviation 46.1 fL 45.9 fL RDW Coefficient of Variation 13.9 % 13.9 % Immature Granulocyte % (Auto) 0.1 % 0.2 % Immature Granulocyte # (Auto) 0.01 K/uL 0.01 K/uL Prothrombin Time 10.2 SECONDS Prothromb Time International Ratio 1.0 Activated Partial Thromboplast Time 24.9 SECONDS Partial Thromboplastin Ratio 1.0 Sodium Level 139 mmol/L 142 mmol/L Potassium Level 3.7 mmol/L 3.9 mmol/L Chloride Level 105 mmol/L 109 mmol/L Carbon Dioxide Level 26 mmol/L 24 mmol/L Anion Gap 9.0 mmol/L 9.0 mmol/L Blood Urea Nitrogen 22 mg/dl 15 mg/dl Creatinine 1.21 mg/dl 1.10 mg/dl Est Creatinine Clear Calc Drug Dose 46.2 ml/min 51.2 ml/min Estimated GFR () 50.7 56.9 Estimated GFR (Non- 43.7 49.1 BUN/Creatinine Ratio 18.2 14.0 Random Glucose 81 mg/dl 98 mg/dl Calcium Level 9.2 mg/dl 8.2 mg/dl Total Bilirubin 0.4 mg/dl 0.5 mg/dl Aspartate Amino Transf (AST/SGOT) 12 U/L 11 U/L Alanine Aminotransferase (ALT/SGPT) 19 U/L 17 U/L Alkaline Phosphatase 91 U/L 74 U/L Total Protein 7.6 gm/dl 6.5 gm/dl Albumin 3.7 gm/dl 3.3 gm/dl Globulin 3.9 gm/dl 3.2 gm/dl Albumin/Globulin Ratio 1.0 1.0 Lipase 177 U/L Magnesium Level 2.1 mg/dl Thyroid Stimulating Hormone (TSH) 3.510 uIu/ml Impression Patient is a 77 year old female with bright red rectal bleeding and melena Plan Patient just recently had a panendoscopy with noted grade B esophagitis, colonic AVMs as well as one large cecal polyp, s/p resection and APC, and a small ascending polyp, also resected. Report of BRBPR as well as melena. Blood counts are stable. She is on a daily PPI. Post bowel prep now with clear BMs - no further bleeding, no significant abdominal pain. Will pursue a colonoscopy today for evaluation of a possible post polypectomy bleed. I performed a history and physical examination of the patient. I have discussed the patient's case, impression and plan with Charity Alejandre PA-C. Her note reflects my findings and plan. Case discussed with patient and Dr. Harkins. Dr Harkins wants a colonoscopy to look for high risk rebleeding site. Bryan Bruner MD
[2017-05-22] MEDS ORDERED: ATROPINE SULFATE 0.1 MG/ML 5ML SYR IV PRN (11:30)
[2017-05-22] MEDS ORDERED: EpHEDrine SULFATE INJ 50 MG/ML AMP IV PRN (11:30)
--- NOTE | 2017-05-22 11:36 | Progress Note ---
Progress Note Date of Service May 22, 2017. Progress Note Dr. Harkins arranged colonoscopy on this patient for post polypectomy bleeding. Patient denies abdominal pain. Patient in no distress and abdomen benign. Will perform colonoscopy.
[2017-05-22] MEDS ORDERED: LIDOCAINE HCL 2% 2 ML VIAL (20MG/ML) ONE (11:44)
[2017-05-22] MEDS ORDERED: PROPOFOL IV EMULSION 10 MG/ML 20 ML VIAL IV ONE (11:44)
--- NOTE | 2017-05-22 12:41 | Anesthesiology Progress Note ---
Anesthesia Post Op Note Date & Time May 22, 2017 at 12:41 Vital Signs Pain Intensity: 0.0 Vital Signs Past 12 Hours Date Time Temp Pulse Resp B/P (MAP) Pulse Ox O2 Delivery O2 Flow Rate FiO2 05/22/17 12:05 69 16 138/78 (98) 96 Room Air 05/22/17 11:07 36.7 64 16 193/82 (119) 96 Room Air 05/22/17 10:45 36.6 78 18 172/70 96 Room Air 05/22/17 08:30 172/70 (104) 05/22/17 08:30 Room Air 05/22/17 08:09 36.6 78 16 96 Room Air 05/22/17 05:01 36.7 71 19 158/68 (98) 98 Room Air 05/22/17 04:00 Room Air Notes Mental Status: alert / awake / arousable, participated in evaluation Pt Amnestic to Procedure: Yes Nausea / Vomiting: adequately controlled Pain: adequately controlled Airway Patency, RR, SpO2: stable & adequate BP & HR: stable & adequate Hydration State: stable & adequate Anesthetic Complications: no major complications apparent
[2017-05-22] MEDS ORDERED: HydrALAZINE HCL 20 MG/ML VIAL IV. STA (12:56)
[2017-05-22] MEDS ORDERED: HydrALAZINE HCL 20 MG/ML VIAL ONE (12:57)
[2017-05-22] MEDS ORDERED: LOSARTAN POTASSIUM 25 MG TAB PO ONE (14:00)
[2017-05-22] MEDS ORDERED: NURSING VERBAL MED ORDER ONE ×2 (15:15→19:15)
[2017-05-22] MEDS: CITALOPRAM 20 MG TAB PO SCH (21:21)
[2017-05-22] MEDS: BuPROPion SR 150 MG TABCR PO SCH (21:21)
[2017-05-22] MEDS ORDERED: ACETAMINOPHEN 325 MG TAB PO ONE (23:53)
[2017-05-22] MEDS ORDERED: ACETAMINOPHEN 325 MG TAB ONE (23:59)
[2017-05-23] VITALS (11 sets, daily range): BP systolic 130–185; BP diastolic 51–69; PULSE 54–73; TEMP 36.1–36.9; O2SAT 94–99
[2017-05-23] MEDS ORDERED: ACETAMINOPHEN 325 MG TAB PO PRN
--- NOTE | 2017-05-23 00:23 | GI REPORT ---
Procedure Date: 05/22/2017 11:13 AM Procedure: Colonoscopy Indications: Hematochezia, Rectal bleeding Medicines: See the Anesthesia note for documentation of the administered medications Complications: No immediate complications. Estimated Blood Loss: Estimated blood loss: none. Procedure: Pre-Anesthesia Assessment: - Prior to the procedure, a History and Physical was performed, and patient medications, allergies and sensitivities were reviewed. The patient's tolerance of previous anesthesia was reviewed. - The risks and benefits of the procedure and the sedation options and risks were discussed with the patient. All questions were answered and informed consent was obtained. - Patient identification and proposed procedure were verified prior to the procedure by the physician and the nurse. The procedure was verified in the pre-procedure area. - Pre-procedure physical examination revealed no contraindications to sedation. - After reviewing the risks and benefits, the patient was deemed in satisfactory condition to undergo the procedure. After I obtained informed consent, the scope was passed under direct vision. Throughout the procedure, the patient's blood pressure, pulse, and oxygen saturations were monitored continuously. The scope was introduced through the anus and advanced to the cecum, identified by appendiceal orifice and ileocecal valve. The colonoscopy was performed without difficulty. The patient tolerated the procedure well. The quality of the bowel preparation was good. Findings: The perianal and digital rectal examinations were normal. A single (solitary) superficial postpolypectomy ulcer was found in the cecum. No bleeding was present. No stigmata of recent bleeding were seen. No clips seen. The exam was otherwise without abnormality on direct and retroflexion views. Impression: - A single superficial post polypectomy ulcer in the cecum. No clips seen. No bleeding seen. - The examination was otherwise normal on direct and retroflexion views. - No specimens collected. Recommendation: - Return patient to hospital [facility] for ongoing care. - Follow up as per Dr. Harkins. Bryan Bruner M.D. Bryan Bruner MD 05/22/2017 12:12:07 PM This report has been signed electronically. Note Initiated On: 05/22/2017 11:13 AM I attest to the content of the Intraoperative Record and orders documented therein, exceptions below
[2017-05-23] MEDS: LEVOTHYROXINE 100 MCG TAB PO SCH (06:07)
[2017-05-23 06:19] LABS: HEMATOCRIT 37.2 % (37-47); MEAN CELL VOLUME 92.5 fL (80-100); MEAN CORPUSCULAR HEMOGLOBIN 29.9 pg (25-34); MEAN CORPUSCULAR HGB CONC 32.3 g/dl (32-36); MEAN PLATELET VOLUME 10.2 fL (7.4-10.4); PLATELET COUNT 212 K/uL (130-400); RED BLOOD COUNT 4.02 M/uL (4.2-5.4); WHITE BLOOD COUNT 6.19 K/uL (4.8-10.8)
[2017-05-23 06:48] LABS: BUN/CREATININE RATIO 12.2 (10-20); CALCIUM 8.7 mg/dl (8.5-10.1); CREATININE 1.3 mg/dl (0.60-1.20); POTASSIUM 3.9 mmol/L (3.5-5.1)
[2017-05-23] MEDS: PANTOprazole INJ 40 MG in SYRINGE 0 ML IV SCH ×2 (08:09→20:47)
[2017-05-23] MEDS ORDERED: METOPROLOL SUCC 25MG EXT REL TAB PO SCH (09:00)
--- NOTE | 2017-05-23 11:47 | Progress Note ---
Medicine Progress Note Date & Time of Visit: May 23, 2017 at 11:26. Subjective Pt was seen and examined Sitting in chair with no distress Pt said that she has not been sleeping well She said that her BP seems to improved Denies any chest tracey, palpitation, dizziness and SOB Objective Last 8 Hrs Date Time Temp Pulse Resp B/P (MAP) Pulse Ox O2 Delivery O2 Flow Rate FiO2 05/23/17 07:31 36.9 70 20 160/63 (95) 94 Room Air 182/69 (106) 05/23/17 07:30 Room Air 05/23/17 04:12 36.8 67 19 137/52 (80) 98 Room Air 05/23/17 04:00 Room Air Physical Exam: General- No distress Head- atraumatic Eyes- PERRL, EOMI ENT- oropharynx clear Neck- supple, no JVD Lungs- clear to auscultation Heart- regular rhythm; no murmur Abdomen- normal bowel sounds, soft Extremities- no pretibial edema, no calf tenderness Neuro- alert, oriented x 3; PERRL, EOMI; no facial palsy Skin- warm & dry Laboratory Results: Last 24 Hours Test 05/23/17 05:59 White Blood Count 6.19 K/uL Red Blood Count 4.02 M/uL Hemoglobin 12.0 g/dL Hematocrit 37.2 % Mean Corpuscular Volume 92.5 fL Mean Corpuscular Hemoglobin 29.9 pg Mean Corpuscular Hemoglobin Concent 32.3 g/dl RDW Standard Deviation 48.4 fL RDW Coefficient of Variation 14.2 % Platelet Count 212 K/uL Mean Platelet Volume 10.2 fL Sodium Level 144 mmol/L Potassium Level 3.9 mmol/L Chloride Level 109 mmol/L Carbon Dioxide Level 26 mmol/L Anion Gap 8.0 mmol/L Blood Urea Nitrogen 16 mg/dl Creatinine 1.30 mg/dl Est Creatinine Clear Calc Drug Dose 43.2 ml/min Estimated GFR () 46.5 Estimated GFR (Non- 40.1 BUN/Creatinine Ratio 12.2 Random Glucose 87 mg/dl Calcium Level 8.7 mg/dl Assessment & Plan This is a 77 year old female with a PMH of HTN, HLD, CKD stage 3, hypothyroidism , GERD, dysthymic disorder, stable meningioma, recent colonoscopy/endoscopy on 05/09/17 presented with black, tarry stool Possible LGIB Presented with bright red blood, which had transitioned to black, tarry stool; began on 05/18 Recent upper endoscopy showed esophagitis Gastro on board Had colonoscopy done on 05/18 that showed colonic polyp and some colonic AVMs Repeat Colonoscopy done yesterday Showed: A single superficial post polypectomy ulcer in the cecum. No clips seen. No bleeding seen. Hgb has been stable Continue holding ASA On IV PPI BID, will change to PO Asymptomatic NSVT No arrhythmia on tele monitor Was starting on Beta Addi ECHO showed * Small, underfilled LV chamber size with mild concentric LVH, sigmoid appearing septum. * Normal LV systolic function, EF 55-60%. * No segmental left ventricular wall motion abnormalities are noted. * Grade I diastolic dysfunction. * Aortic valve sclerosis mild, without significant aortic valvular stenosis. Mild aortic regurgitation. HTN BP elevated Losartan 12.5mg was changed to metoprolol 25 mg daily Continue monitor BP Dysthymia continue Wellbutrin and Celexa CKD stage 3 Creatinine slightly increase to 1.3 Mostly related to the bowel prep IVF was stopped, will resume IVF Hypothyroidism TSH wnl continue Synthroid DVT ppx SCDs FULL CODE Disposition Will discharge home today Consultants: Gastro Current Inpatient Medications: Current Inpatient Medications Medications (Trade) Dose Ordered Sig/Dustin Route Start Time Stop Time Status Last Admin Dose Admin Pantoprazole Sodium 40 mg/ Syringe 10 ml @ 5 mls/min BID IV 05/21/17 21:00 06/20/17 20:59 05/23/17 08:09 5 MLS/MIN Miscellaneous (Iv Fluids Completed) 1 ea PRN PRN N/A 05/21/17 21:15 05/21/18 21:14 Metoprolol Succinate (Toprol Xl Tab) 25 mg QAM PO 05/23/17 09:00 06/22/17 08:59 05/23/17 08:09 25 MG Levothyroxine Sodium (Synthroid Tab) 100 mcg DAILYBB PO 05/22/17 06:00 06/21/17 05:59 05/23/17 06:07 100 MCG Bupropion HCl (Wellbutrin-Sr Tab) 150 mg HS PO 05/22/17 21:00 06/21/17 20:59 05/22/17 21:21 150 MG Citalopram Hydrobromide (celeXA TAB) 20 mg HS PO 05/22/17 21:00 06/21/17 20:59 05/22/17 21:21 20 MG Acetaminophen (Tylenol Tab) 650 mg Q6H PRN PO 05/23/17 00:00 06/22/17 00:00
[2017-05-23] MEDS ORDERED: TPRSR25 PO (12:39)
--- NOTE | 2017-05-23 12:45 | Discharge Instructions ---
Discharge Instructions Date of Service May 23, 2017. Admission Reason for Admission: Gi Bleeding Discharge Discharge Diagnosis / Problem: GI Bleed, HTN, Asymptomatic NSVT, CKD Stage 3, Hypothyroidism Discharge Goals Goal(s): Decrease discomfort, Improve function, Improve disease control Activity Recommendations Activity Limitations: resume your previous activity (as tolerated) . Instructions / Follow-Up Instructions / Follow-Up Follow up with Dr. Bryan (Dr. Rodriguez's colleague) on 05/28 @ 10:45 am Monitor blood pressure and bring blood pressure log to your next appointment with Dr. Bryan Hold Aspirin for now until OK to restart by your physician Current Hospital Diet Patient's current hospital diet: AHA Diet (Heart Healthy) Discharge Diet Recommended Diet: AHA Diet (Heart Healthy), Low Sodium Diet (2gm Na) Procedures Procedures Performed: COLONOSCOPY Pending Studies Studies pending at discharge: no Medical Emergencies . Who to Call and When: Medical Emergencies: If at any time you feel your situation is an emergency, please call 911 immediately. . Non-Emergent Contact Non-Emergency issues call your: Primary Care Provider Call Non-Emergent contact if: you have any medication questions . . "Provider Documentation" section prepared by Arun Cotton. . VTE Core Measure Inpt VTE Proph given/why not?: SCD's (due to GI bleed)
[2017-05-23] MEDS ORDERED: LOSA1TAB PO (12:46)
[2017-05-23] MEDS ORDERED: LOSARTAN POTASSIUM 25 MG TAB PO ONE (12:56)
[2017-05-23] MEDS ORDERED: NURSING VERBAL MED ORDER ONE (15:15)
[2017-05-23] MEDS ORDERED: SODIUM CHLORIDE 0.9% 1000ML 1,000 ML IV SCH (15:15)
[2017-05-23] MEDS ORDERED: HydrALAZINE HCL 20 MG/ML VIAL IV. PRN (16:15)
[2017-05-23] MEDS ORDERED: CARVEDILOL 3.125 MG TAB PO ONE (20:04)
--- NOTE | 2017-05-23 20:07 | Progress Note ---
Internal Med Progress Note Date of Service: May 23, 2017. Provider Documentation: Made aware by RN of persistently elevated SBP 170s to 180s. Patient slightly anxious. CR 60s serum crea 1.3 AP Hypertensive urgency (suboptimal BP control since admission 05/21) ARF Change Toprol to Coreg for now. Consider increasing Losartan dose in a.m. if BP still uncontrolled tomorrow a.m. if creatinine stable . Vital Signs: Date Time Temp Pulse Resp B/P (MAP) Pulse Ox O2 Delivery O2 Flow Rate FiO2 05/24/17 07:55 37.1 62 19 145/56 (85) 93 Room Air 05/24/17 04:00 Room Air 05/24/17 03:40 36.8 64 18 143/49 (80) 95 Room Air 05/24/17 00:00 97 Room Air 05/24/17 00:00 37.5 60 162/59 (93) 97 Room Air 05/23/17 21:27 62 185/66 (105) 05/23/17 20:00 Room Air 05/23/17 19:54 61 176/62 (100) 98 05/23/17 19:45 36.7 66 18 181/51 (94) 96 Room Air 05/23/17 17:58 36.1 73 151/58 (89) 05/23/17 16:00 99 Room Air 05/23/17 15:57 174/59 (97) 05/23/17 15:52 36.7 54 180/60 (100) 99 Room Air 05/23/17 12:37 36.9 69 20 175/59 (97) 97 Room Air 05/23/17 11:30 Room Air Lab Results: Results Past 24 Hours Test 05/24/17 06:04 Range/Units Sodium Level 143 136-145 mmol/L Potassium Level 3.9 3.5-5.1 mmol/L Chloride Level 110 98-107 mmol/L Carbon Dioxide Level 25 21-32 mmol/L Anion Gap 8.0 3-11 mmol/L Blood Urea Nitrogen 17 7-18 mg/dl Creatinine 1.09 0.60-1.20 mg/dl Est Creatinine Clear Calc Drug Dose 51.3 ml/min Estimated GFR () 57.5 Estimated GFR (Non- 49.6 BUN/Creatinine Ratio 15.1 10-20 Random Glucose 81 70-99 mg/dl Calcium Level 8.9 8.5-10.1 mg/dl
[2017-05-23] MEDS ORDERED: LORAZEPAM 2 MG/ML 1 ML VIAL IV ONE (20:15)
[2017-05-23] MEDS: BuPROPion SR 150 MG TABCR PO SCH (20:48)
[2017-05-23] MEDS: CITALOPRAM 20 MG TAB PO SCH (20:48)
[2017-05-24] VITALS: BP 162/59; PULSE 60; TEMP 37.5; O2SAT 97
[2017-05-24 03:40] VITALS: BP 143/49; PULSE 64; TEMP 36.8; O2SAT 95
[2017-05-24] MEDS: LEVOTHYROXINE 100 MCG TAB PO SCH (06:13)
[2017-05-24 06:56] LABS: BUN/CREATININE RATIO 15.1 (10-20); CALCIUM 8.9 mg/dl (8.5-10.1); CREATININE 1.09 mg/dl (0.60-1.20); POTASSIUM 3.9 mmol/L (3.5-5.1)
[2017-05-24 07:55] VITALS: BP 145/56; PULSE 62; TEMP 37.1; O2SAT 93
[2017-05-24] MEDS ORDERED: LOSARTAN POTASSIUM 25 MG TAB PO SCH (09:00)
[2017-05-24] MEDS ORDERED: CARVEDILOL 3.125 MG TAB PO SCH (09:00)
[2017-05-24] MEDS ORDERED: PANTOprazole SOD 40 MG TAB PO SCH (09:00)
--- NOTE | 2017-05-24 11:24 | Progress Note ---
Medicine Progress Note Date & Time of Visit: May 24, 2017 at 09:19. Subjective Pt was seen and examined Lying in bed comfortable with no distress Pt said that she feels much better this morning She said that she slept well last night she denies any headache, dizziness, palpitation and SOB Objective Last 8 Hrs Date Time Temp Pulse Resp B/P (MAP) Pulse Ox O2 Delivery O2 Flow Rate FiO2 05/24/17 08:00 Room Air 05/24/17 07:55 37.1 62 19 145/56 (85) 93 Room Air 05/24/17 04:00 Room Air 05/24/17 03:40 36.8 64 18 143/49 (80) 95 Room Air Physical Exam: General- No distress Head- atraumatic Eyes- PERRL, EOMI ENT- oropharynx clear Neck- supple, no JVD Lungs- clear to auscultation Heart- regular rhythm; no murmur Abdomen- normal bowel sounds, soft Extremities- no pretibial edema, no calf tenderness Neuro- alert, oriented x 3; PERRL, EOMI; no facial palsy Skin- warm & dry Laboratory Results: Last 24 Hours Test 05/24/17 06:04 Sodium Level 143 mmol/L Potassium Level 3.9 mmol/L Chloride Level 110 mmol/L Carbon Dioxide Level 25 mmol/L Anion Gap 8.0 mmol/L Blood Urea Nitrogen 17 mg/dl Creatinine 1.09 mg/dl Est Creatinine Clear Calc Drug Dose 51.3 ml/min Estimated GFR () 57.5 Estimated GFR (Non- 49.6 BUN/Creatinine Ratio 15.1 Random Glucose 81 mg/dl Calcium Level 8.9 mg/dl Assessment & Plan This is a 77 year old female with a PMH of HTN, HLD, CKD stage 3, hypothyroidism , GERD, dysthymic disorder, stable meningioma, recent colonoscopy/endoscopy on 05/09/17 presented with black, tarry stool Possible LGIB Presented with bright red blood, which had transitioned to black, tarry stool; began on 05/18 Recent upper endoscopy showed esophagitis Gastro on board Had colonoscopy done on 05/18 that showed colonic polyp and some colonic AVMs Repeat Colonoscopy done on 05/22 Showed: A single superficial post polypectomy ulcer in the cecum. No clips seen. No bleeding seen. Hgb has been stable Continue holding ASA for now Continue pantoprazole Asymptomatic NSVT No arrhythmia on tele monitor Was starting on Beta Addi, tolerated well Continue metoprolol 25 mg ECHO showed * Small, underfilled LV chamber size with mild concentric LVH, sigmoid appearing septum. * Normal LV systolic function, EF 55-60%. * No segmental left ventricular wall motion abnormalities are noted. * Grade I diastolic dysfunction. * Aortic valve sclerosis mild, without significant aortic valvular stenosis. Mild aortic regurgitation. HTN BP improved Continue metoprolol 25 mg Losartan 12.5mg resumed yesterday' Tolerated BP meds Continue monitor BP Dysthymia continue Wellbutrin and Celexa CKD stage 3 Creatinine 1.09 stable Hypothyroidism TSH wnl continue Synthroid DVT ppx SCDs FULL CODE Disposition Will discharge home today Follow up appt with Dr. Bryan on 05/28 @ 10:45 am Consultants: Gastro Current Inpatient Medications: Current Inpatient Medications Medications (Trade) Dose Ordered Sig/Dustin Route Start Time Stop Time Status Last Admin Dose Admin Miscellaneous (Iv Fluids Completed) 1 ea PRN PRN N/A 05/21/17 21:15 05/21/18 21:14 Levothyroxine Sodium (Synthroid Tab) 100 mcg DAILYBB PO 05/22/17 06:00 06/21/17 05:59 05/24/17 06:13 100 MCG Bupropion HCl (Wellbutrin-Sr Tab) 150 mg HS PO 05/22/17 21:00 06/21/17 20:59 05/23/17 20:48 150 MG Citalopram Hydrobromide (celeXA TAB) 20 mg HS PO 05/22/17 21:00 06/21/17 20:59 05/23/17 20:48 20 MG Acetaminophen (Tylenol Tab) 650 mg Q6H PRN PO 05/23/17 00:00 06/22/17 00:00 Losartan Potassium (coZAAR TAB) 12.5 mg QAM PO 05/24/17 09:00 06/23/17 08:59 05/24/17 08:10 12.5 MG Hydralazine HCl (HydrALAZINE INJ) 10 mg Q6 PRN IV. 05/23/17 16:15 06/22/17 16:14 05/23/17 16:26 10 MG Pantoprazole Sodium (Protonix Tab) 40 mg BID PO 05/24/17 09:00 06/23/17 08:59 05/24/17 08:10 40 MG Carvedilol (Coreg Tab) 3.125 mg BID PO 05/24/17 09:00 06/23/17 08:59 05/24/17 08:09 3.125 MG
[2017-05-24 11:31] VITALS: BP 145/56; PULSE 62; TEMP 37.1; O2SAT 93
--- NOTE | 2017-05-24 18:27 | Discharge Summary ---
Discharge Summary Date of Service May 24, 2017. Discharge Summary Admission Date: May 21, 2017 at 19:09 Discharge Date: May 24, 2017 Discharge Disposition: Home Principal Diagnosis: GI Bleed Secondary Diagnoses/Problems: HTN Asymptomatic NSVT CKD Stage 3 Hypothyroidism Procedures: CHEST ONE VIEW PORTABLE HISTORY: 77 years-old Female EVALUATE GI BLEED acute gastrointestinal hemorrhage COMPARISON: None available TECHNIQUE: Portable AP view of the chest FINDINGS: Cardiac silhouette is mildly enlarged. There is atherosclerosis of the aorta. There is no pneumothorax, pleural effusion, focal airspace consolidation or overt pulmonary edema. Bones of the chest are grossly intact. Mild interstitial coarsening suggests chronic changes. Linear subsegmental right basilar opacities suggest atelectasis or scarring. Bones of the chest are grossly intact with degenerative changes of the shoulders and spine. Calcifications of the right neck suggest atherosclerotic plaquing of the right carotid bulb. IMPRESSION: No acute cardiopulmonary process. The above report was generated using voice recognition software. It may contain grammatical, syntax or spelling errors. Electronically signed by: Hany Porter M.D. 05/21/2017 6:40 PM Dictated Date/Time: 05/21/2017 6:38 PM Consultations: Gastro Medication Reconciliation New Medications: Metoprolol Succinate (Metoprolol Succinate ER) 25 Mg Tabcr 25 MG PO QAM for 30 Days Continued Medications: Aspirin (Aspirin Ec) 81 Mg Tab 81 MG PO DAILY Bupropion Hcl (Wellbutrin Sr) 150 Mg Tabcr 150 MG PO DAILY Citalopram Hydrobromide (Citalopram Hydrobromide) 20 Mg Tab 20 MG PO DAILY, 3 Refills Fish Oil (Alger-3) 1 Ea Cap 1 CAP PO DAILY, CAP Levothyroxine Sodium (Levothyroxine Sodium) 100 Mcg Tab 100 MCG PO DAILY, 3 Refills Losartan Potassium (Cozaar) 25 Mg Tab 12.5 MG PO DAILY, TAB 5 Refills Pantoprazole (Protonix) 40 Mg Tab 40 MG PO DAILY Admission Information HPI (per Admitting provider): This is a 77 year old F with recent upper endoscopy and colonoscopy on 05/09/17 with presentation to the ED after having blood in stool starting Friday then subsequently blood in stool black and tarry in appearance. Patient denies abdominal pain associated with the blood in rectum. Patient able to tolerate her usual diet without vomiting. Patient denies chest pain or shortness of breath. Patient takes aspirin daily at home. Other past medical history of Levothyroxine for hypothyroidism. History of gallbladder removed. The ER physician had discussed the case with Gastroenterology Dr. Harkins who asked patient to be given bowel prep and NPO after midnight for possible colonoscopy on Friday05/22/17 Physical Exam (per Admitting): General Appearance: WD/WN, no apparent distress Head: normocephalic, atraumatic Eyes: normal inspection, EOMI, sclerae normal ENT: normal ENT inspection, hearing grossly normal, TMs normal, pharynx normal Neck: no JVD, trachea midline Respiratory/Chest: chest non-tender, lungs clear, normal breath sounds, no respiratory distress, no accessory muscle use Cardiovascular: regular rate, rhythm, no edema, no JVD Abdomen/GI: normal bowel sounds, non tender, soft Back: normal inspection, no CVA tenderness, no muscle spasm, normal range of motion Extremities/Musculoskelatal: normal inspection, no calf tenderness, normal capillary refill, no pedal edema, normal range of motion Neurologic/Psych: no motor/sensory deficits, alert, normal mood/affect, oriented x 3 Skin: normal color, warm/dry, no rash Hospital Course This is a 77 year old female with a PMH of HTN, HLD, CKD stage 3, hypothyroidism , GERD, dysthymic disorder, stable meningioma, recent colonoscopy/endoscopy on 05/09/17 presented with black, tarry stool Possible LGIB Presented with bright red blood, which had transitioned to black, tarry stool; began on 05/18 Recent upper endoscopy showed esophagitis Gastro on board Had colonoscopy done on 05/18 that showed colonic polyp and some colonic AVMs Repeat Colonoscopy done on 05/22 Showed: A single superficial post polypectomy ulcer in the cecum. No clips seen. No bleeding seen. Hgb has been stable Continue holding ASA for now Continue pantoprazole Asymptomatic NSVT No arrhythmia on tele monitor Was starting on Beta Addi, tolerated well Continue metoprolol 25 mg ECHO showed * Small, underfilled LV chamber size with mild concentric LVH, sigmoid appearing septum. * Normal LV systolic function, EF 55-60%. * No segmental left ventricular wall motion abnormalities are noted. * Grade I diastolic dysfunction. * Aortic valve sclerosis mild, without significant aortic valvular stenosis. Mild aortic regurgitation. HTN BP improved Continue metoprolol 25 mg Losartan 12.5mg resumed yesterday' Tolerated BP meds Continue monitor BP Dysthymia continue Wellbutrin and Celexa CKD stage 3 Creatinine 1.09 stable Hypothyroidism TSH wnl continue Synthroid DVT ppx SCDs FULL CODE Disposition Will discharge home today Follow up appt with Dr. Bryan on 05/28 @ 10:45 am Total time spent on discharge = 35 minutes This includes examination of the patient, discharge planning, medication reconciliation, and communication with other providers. Discharge Instructions Discharge Instructions Date of Service May 23, 2017. Admission Reason for Admission: Gi Bleeding Discharge Discharge Diagnosis / Problem: GI Bleed, HTN, Asymptomatic NSVT, CKD Stage 3, Hypothyroidism Discharge Goals Goal(s): Decrease discomfort, Improve function, Improve disease control Activity Recommendations Activity Limitations: resume your previous activity (as tolerated) . Instructions / Follow-Up Instructions / Follow-Up Follow up with Dr. Bryan (Dr. Rodriguez's colleague) on 05/28 @ 10:45 am Monitor blood pressure and bring blood pressure log to your next appointment with Dr. Bryan Hold Aspirin for now until OK to restart by your physician Current Hospital Diet Patient's current hospital diet: AHA Diet (Heart Healthy) Discharge Diet Recommended Diet: AHA Diet (Heart Healthy), Low Sodium Diet (2gm Na) Procedures Procedures Performed: COLONOSCOPY Pending Studies Studies pending at discharge: no Medical Emergencies . Who to Call and When: Medical Emergencies: If at any time you feel your situation is an emergency, please call 911 immediately. . Non-Emergent Contact Non-Emergency issues call your: Primary Care Provider Call Non-Emergent contact if: you have any medication questions . . "Provider Documentation" section prepared by Arun Cotton. . VTE Core Measure Inpt VTE Proph given/why not?: SCD's (due to GI bleed) Additional Copies To Magi Rodriguez D.O.
== END 2017-05-24 12:18 | disposition home or self-care (01) ==
LOC: C.EDB 16:19 → C.2E 19:09 → ENRESERV 19:22
PROVIDERS: ADMIT Hospitalist; ATTEND Internal Medicine
DX: K92.2 Gastrointestinal hemorrhage, unspecified (principal); K63.3 Ulcer of intestine; I12.9 Hypertensive chronic kidney disease with stage 1 through stage 4 chronic kidney disease, or unspecified chronic kidney disease; I47.2 Ventricular tachycardia; N18.3 Chronic kidney disease, stage 3 (moderate); E03.9 Hypothyroidism, unspecified; E78.5 Hyperlipidemia, unspecified; Z79.899 Other long term (current) drug therapy; Z79.82 Long term (current) use of aspirin; Z98.890 Other specified postprocedural states; Z90.49 Acquired absence of other specified parts of digestive tract; E66.9 Obesity, unspecified; Z68.41 Body mass index [BMI] 40.0-44.9, adult